=== PATIENT | female | born 1980 ===

== ENCOUNTER 2020-03-05 09:23 | Outpatient (CLI) | payer OTHER | END 2020-03-05 09:35 | disposition home or self-care (01) | LOC: SONOGRAMA 09:23 → MAMO-SONO 09:45 | PROVIDERS: ATTEND Obstetrics & Gynecology | DX: N84.0 Polyp of corpus uteri (principal) ==

== ENCOUNTER 2023-10-25 13:15 | Inpatient (IN) | payer OTHER ==
[~2023-10-25] VITALS: Ht 157.5 cm; Wt 72.6 kg
[2023-10-25 15:55] LABS: PH,URINE 6.5 (5.0-8.0); URINE APPEARANCE Clear; URINE BILIRRUBIN Negative (NEGATIVE); URINE BLOOD Negative; URINE COLOR Yellow; URINE GLUCOSE Negative (NEGATIVE); URINE LEUKOCYTE Negative; URINE NITRATE Negative; URINE PROTEIN Negative (NEGATIVE)
[2023-10-25 15:56] LABS: HEMATOCRIT 32.2 % (36.0-45.00); HEMOGLOBIN 10.4 g/dL (12.0-15.00); MEAN CELL VOLUME 83.1 fL (80.00-100.00); MEAN CORPUSCULAR HEMOGLOBIN 26.7 pg (27.00-32.0); MEAN CORPUSCULAR HGB CONC 32.2 g/dl (32.0-36.0); PLATELET COUNT 264 K/uL (150-450); RED BLOOD COUNT 3.88 M/uL (4.00-6.00); RED CELL DISTRIBUTION WIDTH 15.9 % (11.5-14.5)
[2023-10-25 15:57] LABS: URINE BACTERIA 763.5 uL (0.0-1933); URINE EPITHELIAL CELLS 17.9 uL (0.0-38.8); URINE RBC 4.7 uL (0.0-20.8); URINE WBC 17.6 uL (0.0-23.2)
[2023-10-25 16:19] LABS: ALBUMIN 2.3 gm/dL (3.4-5.0); BILIRUBIN TOTAL 0.2 mg/dL (0.3-1.2); CALCIUM 9.1 mg/dL (8.5-10.1); CREATININE SERUM 0.53 mg/dL (0.55-1.02); GFR 126.51; GLOBULINA 3.7 G/DL (2.4-3.5); INR < 0.93; POTASSIUM 3.62 mEq/L (3.5-5.1); PROTHROMBIN TIME 9.4 SECONDS (9.0-11.5)
[2023-11-01] MEDS ORDERED: AMPICILLIN SODIUM 2,000 MG VIAL ONE (08:24)
[2023-11-01] MEDS ORDERED: MISOPROSTOL 25 MCG/4 ML GEL.W.APPL ONE (09:31)
[2023-11-01] MEDS ORDERED: CHILDREN'S ASPI81 MG PO (09:44)
[2023-11-01] MEDS ORDERED: PRENATABS RX T1 EACH PO (09:44)
[2023-11-01] MEDS ORDERED: AMPICILLIN SODIUM 1,000 MG VIAL IV SCH (09:46)
[2023-11-01] MEDS ORDERED: AMPICILLIN SODIUM 2,000 MG VIAL IV ONE (10:00)
[2023-11-01] MEDS ORDERED: RINGERS SOLUTION,LACTATED 1,000 ML IV SCH (10:00)
[2023-11-01] MEDS ORDERED: MISOPROSTOL 25 MCG/4 ML GEL.W.APPL VAG ONE ×4 (10:15→22:15)
[2023-11-02] MEDS ORDERED: OXYTOCIN 500 ML IV SCH (08:30)
[2023-11-02] MEDS ORDERED: MEPERIDINE HCL/PF 50 MG/ML VIAL IV ONE (14:45)
[2023-11-02] MEDS ORDERED: PROMETHAZINE HCL 25 MG/ML AMPUL IV ONE (15:00)
[2023-11-02] MEDS ORDERED: CHLORHEXIDINE GLUCONATE 120 ML BOTTLE TOP ONE (23:26)
[2023-11-02] MEDS ORDERED: ERYTHROMYCIN BASE 1 GM TUBE OP ONE (23:27)
[2023-11-02] MEDS ORDERED: OXYTOCIN 20 UNITS/1000ML RL PIGGYBAG IV ONE (23:27)
[2023-11-03] MEDS ORDERED: CEFAZOLIN SODIUM 1,000 MG VIAL IV ONE (00:30)
[2023-11-03] MEDS ORDERED: OXYTOCIN 10 UNITS/ML VIAL ONE (00:50)
[2023-11-03] MEDS ORDERED: ERYTHROMYCIN BASE 3.5 GM OINT...G. OP ONE (00:51)
[2023-11-03] MEDS ORDERED: METOCLOPRAMIDE HCL 5 MG/ML VIAL ONE (00:53)
[2023-11-03] MEDS ORDERED: CITRIC ACID/SODIUM CITRATE 30 ML BLIST.PACK PO ONE ×2 (00:55→03:00)
[2023-11-03] MEDS ORDERED: MEPERIDINE HCL/PF 50 MG/ML VIAL IV PRN (02:00)
[2023-11-03] MEDS ORDERED: KETOROLAC TROMETHAMINE 30 MG VIAL IV PRN (02:00)
[2023-11-03] MEDS ORDERED: OXYTOCIN 1,000 ML IV SCH (02:00)
[2023-11-03] MEDS ORDERED: PROMETHAZINE HCL 25 MG/ML AMPUL IV PRN (02:00)
[2023-11-03] MEDS ORDERED: OXYTOCIN 10 UNITS/ML VIAL IV ONE (03:00)
[2023-11-03] MEDS ORDERED: METOCLOPRAMIDE HCL 5 MG/ML VIAL IV ONE (03:00)
[2023-11-03] MEDS ORDERED: ERYTHROMYCIN BASE 1 GM TUBE OP ONE (03:00)
[2023-11-03 07:04] LABS: HEMATOCRIT 27.9 % (36.0-45.00); HEMOGLOBIN 9.1 g/dL (12.0-15.00); MEAN CELL VOLUME 81.8 fL (80.00-100.00); MEAN CORPUSCULAR HEMOGLOBIN 26.8 pg (27.00-32.0); MEAN CORPUSCULAR HGB CONC 32.7 g/dl (32.0-36.0); PLATELET COUNT 234 K/uL (150-450); RED BLOOD COUNT 3.41 M/uL (4.00-6.00); RED CELL DISTRIBUTION WIDTH 16.8 % (11.5-14.5)
[2023-11-03] MEDS ORDERED: IBUprofen 800 MG TABLET PO PRN (12:00)
[2023-11-03] MEDS ORDERED: OxyCODONE HCL/APAP UD (PERCOCET) PO PRN (12:00)
[2023-11-03] MEDS ORDERED: IRON/V.C/V.B12/FOLIC A/VIT. E 1 CAPL CAPLET PO SCH (12:24)
[2023-11-03] MEDS ORDERED: SIMETHICONE 125 MG CAPSULE PO SCH (17:00)
[2023-11-03] MEDS ORDERED: DOCUSATE SODIUM 100MG CAP PO SCH (17:00)
[2023-11-04] MEDS ORDERED: MINERAL OIL 30 ML BLIST.PACK PO ONE (13:45)
[2023-11-04] MEDS ORDERED: MAGNESIUM HYDROXIDE 30 ML BLIST.PACK PO ONE (13:45)
== END 2023-11-05 15:59 | disposition home or self-care (01) | DRG 788 ==
LOC: LDR 11-01 08:08 → OB/GYN 11-03 03:49
PROVIDERS: ADMIT Student in an Organized Health Care Education/Training Program; ATTEND Student in an Organized Health Care Education/Training Program
PROC: 3E0P7VZ Introduction of Hormone into Female Reproductive, Via Natural or Artificial Opening (ICD-10-PCS; 2023-11-01)
PROC: 4A1HXCZ Monitoring of Products of Conception, Cardiac Rate, External Approach (ICD-10-PCS; 2023-11-01)
PROC: 3E033VJ Introduction of Other Hormone into Peripheral Vein, Percutaneous Approach (ICD-10-PCS; 2023-11-02)
PROC: 10D00Z1 Extraction of Products of Conception, Low, Open Approach (ICD-10-PCS; principal; 2023-11-03 00:30)
DX: O61.0 Failed medical induction of labor (principal); O62.1 Secondary uterine inertia; O99.824 Streptococcus B carrier state complicating childbirth; Z3A.39 39 weeks gestation of pregnancy; Z37.0 Single live birth; Z20.822 Contact with and (suspected) exposure to COVID-19